=== PATIENT | female | born 1950 | race Asian ===

== ENCOUNTER 2023-08-31 11:09 | Inpatient (IN) | payer MEDICARE, OTHER ==
[~2023-08-31] VITALS: Ht 147.3 cm; Wt 60.8 kg
[2023-08-31 20:00] VITALS: BP 139/87; TEMP 98.4; O2SAT 97
[2023-08-31] MEDS ORDERED: Z GUARD REMEDY 4 OZ OINT TP PRN (21:30)
[2023-08-31] MEDS ORDERED: ONDANSETRON HCL/PF 4 MG/2 ML VIAL IVP PRN (21:30)
[2023-08-31] MEDS ORDERED: HYDROCODONE/APAP 5/325MG TABLET PO PRN (21:30)
[2023-08-31] MEDS ORDERED: MORPHINE SULFATE INJ 2 MG/ML DISP.SYRIN IV PRN (21:30)
[2023-08-31] MEDS ORDERED: MAGNESIUM HYDROXIDE 30 ML UDC PO PRN (21:30)
[2023-08-31] MEDS ORDERED: ACETAMINOPHEN 325 MG TABLET PO PRN (21:30)
[2023-08-31] MEDS ORDERED: ZOLPIDEM TARTRATE 5 MG TABLET PO PRN (21:30)
[2023-08-31] MEDS ORDERED: MAG HYDROX/AL HYDROX/SIMETH 30 ML UDC PO PRN (21:30)
[2023-08-31] MEDS ORDERED: DEXTROSE 50%-WATER 50 ML DISP.SYRIN IV PRN (21:30)
[2023-08-31 23:49] VITALS: BP 149/57; TEMP 97.9; O2SAT 98
[2023-09-01] VITALS (17 sets, daily range): BP systolic 91–161; BP diastolic 45–130; TEMP 97.5–98.8; O2SAT 96–100
[2023-09-01] MEDS: BLOOD SUGAR DIAGNOSTIC 1 EACH STRIP IN SCH ×5 (00:01→21:38)
[2023-09-01] MEDS: ENOXAPARIN SODIUM 30 MG/0.3 ML DISP.SYRIN SQ SCH ×2 (00:01→21:27)
[2023-09-01] MEDS ORDERED: NITROGLYCERIN PACKET 1 GM PACKET TOP SCH (00:05)
[2023-09-01 07:00] LABS: BASOPHILS % (AUTO) 0.6 % (0.0-2.0); EOSINOPHILS # (AUTO) 0.3 K/uL (0.0-0.7); EOSINOPHILS % (AUTO) 3.8 % (0.0-6.0); HEMATOCRIT 38 % (33-45); HEMOGLOBIN 12.4 g/dL (11.5-14.8); LYMPHOCYTES # (AUTO) 1.7 K/uL (0.8-4.8); LYMPHOCYTES % (AUTO) 20.7 % (20.0-44.0); MEAN CORPUSCULAR HEMOGLOBIN 30 PG (26.0-33.0); MEAN CORPUSCULAR HGB CONC 33 g/dl (31.0-36.0); MEAN CORPUSCULAR VOLUME 92 fL (82-100); MONOCYTES % (AUTO) 11.9 % (2.0-12.0); NEUTROPHILS # (AUTO) 5.1 K/uL (1.8-8.9); PLATELET COUNT (AUTO) 224 K/uL (150-450); RED BLOOD CELL COUNT(AUTO) 4.11 MIL/uL (4.0-5.2); RED CELL DISTRIBUTION WIDTH 14.6 % (11.5-15.0)
[2023-09-01] MEDS: PANTOPRAZOLE 40 MG TABLET.DR PO SCH (07:30)
[2023-09-01 07:45] LABS: CALCIUM, SERUM 9.3 mg/dL (8.5-10.1); CARBON DIOXIDE 23 mmol/L (21-32); CHLORIDE 102 mmol/L (98-107); CREATININE 1.6 mg/dL (0.6-1.3); GLUCOSE 230 mg/dL (74-106); MAGNESIUM 2.1 mg/dL (1.8-2.4); PHOSPHORUS 3.1 mg/dL (2.5-4.9); POTASSIUM 4.2 mmol/L (3.5-5.1); SODIUM SERUM 137 mmol/L (136-145); UREA NITROGEN, BLOOD 29 mg/dL (7-18)
[2023-09-01 07:54] LABS: INR 0.97 (0.91-1.10); PARTIAL THROMBOPLASTIN TIME 33.6 SEC (24.3-34.3); PROTHROMBIN TIME 10.3 SECS (9.2-11.1)
[2023-09-01] MEDS ORDERED: IV NS 0.9% 500 ML IV ONE (08:20)
[2023-09-01] MEDS ORDERED: LIDOCAINE HCL/PF 1% 30 ML SDV ONE (08:20)
[2023-09-01] MEDS ORDERED: NITROGLYCERIN IN 5 % DEXTROSE 250 ML IV ONE (08:20)
[2023-09-01] MEDS ORDERED: IODIXANOL 150 ML IV ONE (08:20)
[2023-09-01] MEDS ORDERED: IV SET PRIMARY PUMP SET 1 EA INFUS.SET MC ONE (08:20)
[2023-09-01] MEDS: ASPIRIN EC 81 MG TABLET.DR PO SCH (09:00)
[2023-09-01] MEDS: AMLODIPINE BESYLATE 5 MG TABLET PO SCH (09:00)
[2023-09-01] MEDS: METOPROLOL SUCCINATE 50 MG TAB.SR.24H PO SCH (09:00)
[2023-09-01] MEDS ORDERED: MIDAZOLAM HCL 2 MG/2ML VIAL ONE (09:21)
[2023-09-01] MEDS ORDERED: FENTANYL PF 100MCG/2ML AMPUL ONE (09:21)
[2023-09-01] MEDS ORDERED: HEPARIN SODIUM, PORCINE 5000 UNITS/1 ML VIAL ONE (09:33)
[2023-09-01] MEDS ORDERED: IODIXANOL 320MG/ML 50 ML IV ONE (09:34)
[2023-09-01] MEDS ORDERED: IODIXANOL 320MG/ML 100 ML IV ONE (09:51)
[2023-09-01] MEDS ORDERED: TICAGRELOR 90 MG TABLET PO ONE (09:55)
[2023-09-01] MEDS ORDERED: ONDA4VIA52 IV (11:25)
[2023-09-01] MEDS ORDERED: PANT40TA2 PO (11:25)
[2023-09-01] MEDS ORDERED: ENOX30DI SQ (11:25)
[2023-09-01] MEDS ORDERED: ATOR40TA PO (11:25)
[2023-09-01] MEDS ORDERED: HYDR-4303 PO (11:25)
[2023-09-01] MEDS ORDERED: ASPI-1420 PO (11:25)
[2023-09-01] MEDS ORDERED: METO100T7 PO (11:25)
[2023-09-01] MEDS ORDERED: ZOLP5TAB2 PO (11:25)
[2023-09-01] MEDS ORDERED: DEXT50DI8 IV (11:25)
[2023-09-01] MEDS ORDERED: DOCU-141 PO (11:25)
[2023-09-01] MEDS ORDERED: INSU100V3 SQ (11:25)
[2023-09-01] MEDS ORDERED: NITR1OIN2 TD (11:25)
[2023-09-01] MEDS ORDERED: AMLO-212 PO (11:25)
[2023-09-01] MEDS ORDERED: CEFT1VIA14 IV (11:25)
[2023-09-01] MEDS ORDERED: ACET-868 PO (11:25)
[2023-09-01] MEDS: CLOTRIMAZOLE 1% 15 GM TUBE TP SCH ×2 (11:44→18:32)
[2023-09-01] MEDS: INSULIN REGULAR, HUMAN 100 UNIT/ML 3 ML VIAL SQ PRN ×3 (11:59→21:40)
[2023-09-01] MEDS: NITROGLYCERIN PACKET 1 GM PACKET TOP SCH ×2 (12:03→21:25)
[2023-09-01] MEDS: TICAGRELOR 90 MG TABLET PO SCH (19:12)
[2023-09-01] MEDS ORDERED: DOCUSATE SODIUM 100 MG CAPSULE PO SCH (22:00)
[2023-09-01] MEDS ORDERED: ATORVASTATIN 40 MG TABLET PO SCH (22:00)
[2023-09-01] MEDS ORDERED: CEFTRIAXONE 1 G in IV D5W 50 ML IV SCH (22:00)
[2023-09-02] VITALS (17 sets, daily range): BP systolic 100–175; BP diastolic 55–107; TEMP 97.8–98.2; O2SAT 95–100
[2023-09-02 03:47] LABS: BASOPHILS % (AUTO) 0.6 % (0.0-2.0); EOSINOPHILS # (AUTO) 0.3 K/uL (0.0-0.7); EOSINOPHILS % (AUTO) 4.1 % (0.0-6.0); HEMATOCRIT 35 % (33-45); HEMOGLOBIN 11.3 g/dL (11.5-14.8); LYMPHOCYTES # (AUTO) 1.3 K/uL (0.8-4.8); LYMPHOCYTES % (AUTO) 17.1 % (20.0-44.0); MEAN CORPUSCULAR HEMOGLOBIN 30 PG (26.0-33.0); MEAN CORPUSCULAR HGB CONC 33 g/dl (31.0-36.0); MEAN CORPUSCULAR VOLUME 91 fL (82-100); MONOCYTES # (AUTO) 0.9 K/uL (0.1-1.30); MONOCYTES % (AUTO) 12.1 % (2.0-12.0); NEUTROPHILS # (AUTO) 4.9 K/uL (1.8-8.9); NEUTROPHILS % (AUTO) 66.1 % (43.0-81.0); PLATELET COUNT (AUTO) 213 K/uL (150-450); RED BLOOD CELL COUNT(AUTO) 3.78 MIL/uL (4.0-5.2); RED CELL DISTRIBUTION WIDTH 15.1 % (11.5-15.0); WHITE BLOOD COUNT (AUTO) 7.4 K/uL (4.3-11.0)
[2023-09-02 04:17] LABS: CALCIUM, SERUM 9.5 mg/dL (8.5-10.1); CARBON DIOXIDE 24 mmol/L (21-32); CHLORIDE 104 mmol/L (98-107); CREATININE 1.4 mg/dL (0.6-1.3); GLUCOSE 120 mg/dL (74-106); PHOSPHORUS 4.1 mg/dL (2.5-4.9); POTASSIUM 3.8 mmol/L (3.5-5.1); SODIUM SERUM 139 mmol/L (136-145); UREA NITROGEN, BLOOD 28 mg/dL (7-18)
[2023-09-02] MEDS: BLOOD SUGAR DIAGNOSTIC 1 EACH STRIP IN SCH ×2 (07:57→11:42)
[2023-09-02] MEDS: INSULIN REGULAR, HUMAN 100 UNIT/ML 3 ML VIAL SQ PRN ×2 (07:57→11:45)
[2023-09-02] MEDS: ASPIRIN EC 81 MG TABLET.DR PO SCH (08:25)
[2023-09-02] MEDS: TICAGRELOR 90 MG TABLET PO SCH ×2 (08:25→17:38)
[2023-09-02] MEDS: NITROGLYCERIN PACKET 1 GM PACKET TOP SCH (08:26)
[2023-09-02] MEDS: AMLODIPINE BESYLATE 5 MG TABLET PO SCH (08:26)
[2023-09-02] MEDS: PANTOPRAZOLE 40 MG TABLET.DR PO SCH (08:26)
[2023-09-02] MEDS: METOPROLOL SUCCINATE 50 MG TAB.SR.24H PO SCH (08:26)
[2023-09-02] MEDS: CLOTRIMAZOLE 1% 15 GM TUBE TP SCH ×2 (09:37→17:38)
[2023-09-02] MEDS ORDERED: TICA90TA PO (14:06)
[2023-09-02] MEDS ORDERED: LINA5TAB PO (14:06)
[2023-09-02] MEDS ORDERED: PANT40TA2 PO (14:06)
[2023-09-02] MEDS ORDERED: INSU100V37 SQ (14:06)
== END 2023-09-02 19:44 | disposition home or self-care (01) | DRG 981 ==
LOC: TELE 19:30 → ICU 09-01 10:23
PROVIDERS: ADMIT Nurse Practitioner Acute Care; ATTEND Student in an Organized Health Care Education/Training Program
PROC: 027035Z Dilation of Coronary Artery, One Artery with Two Drug-eluting Intraluminal Devices, Percutaneous Approach (ICD-10-PCS; principal; 2023-09-01)
PROC: 4A023N7 Measurement of Cardiac Sampling and Pressure, Left Heart, Percutaneous Approach (ICD-10-PCS; 2023-09-01)
PROC: B215YZZ Fluoroscopy of Left Heart using Other Contrast (ICD-10-PCS; 2023-09-01)
DX: J15.9 Unspecified bacterial pneumonia (principal); I21.4 Non-ST elevation (NSTEMI) myocardial infarction; I50.43 Acute on chronic combined systolic (congestive) and diastolic (congestive) heart failure; N17.0 Acute kidney failure with tubular necrosis; I13.0 Hypertensive heart and chronic kidney disease with heart failure and stage 1 through stage 4 chronic kidney disease, or unspecified chronic kidney disease; I42.8 Other cardiomyopathies; I25.10 Atherosclerotic heart disease of native coronary artery without angina pectoris; I16.0 Hypertensive urgency; N18.9 Chronic kidney disease, unspecified; E11.22 Type 2 diabetes mellitus with diabetic chronic kidney disease; E78.5 Hyperlipidemia, unspecified; E66.9 Obesity, unspecified; Z68.28 Body mass index [BMI] 28.0-28.9, adult; I25.5 Ischemic cardiomyopathy; N14.11 Contrast-induced nephropathy; T50.8X5A Adverse effect of diagnostic agents, initial encounter; Y92.89 Other specified places as the place of occurrence of the external cause; Z79.899 Other long term (current) drug therapy; Z86.73 Personal history of transient ischemic attack (TIA), and cerebral infarction without residual deficits
CPT/HCPCS: 36415; 71045-TC; 80048-TC; 82962-TC; 83735-TC; 84100-TC; 85025-TC; 85347; 85610-TC; 85730-TC; 86850-TC; 87081-TC; A4223; G0378; J0696; J1644; J1650; J1815; J2250; J3010; J3490; J7040; J7050; J7060; Q9967